=== PATIENT | female | born 1970 | race Hispanic/Latino ===

== ENCOUNTER 2019-07-26 19:55 | Emergency (ER) | payer BC ==
[~2019-07-26] VITALS: Ht 157.5 cm; Wt 79.8 kg
--- OUTSIDE RECORDS SUMMARY | 2019-07-26 19:58 | XMS REPORT ---
Author Author [facility] Address Unknown Phone Unavailable Care Team Providers Care Case Management Director Name Role Phone Unavailable Unavailable Payers Payer Name Policy Type Policy Number Effective Date Expiration Date Problems This patient has no known problems. Allergies, Adverse Reactions, Alerts Allergy Name Allergy Type Status Severity Reaction(s) Onset Date Inactive Date Treating Clinician Comments No Known Allergies DA Active U 2013-05-27 00:00:00 Medications This patient has no known medications.
[2019-07-26] MEDS ORDERED: KETOROLAC TROMETHAMINE 30 MG/ML VIAL IM STA (20:59)
--- NOTE | 2019-07-26 22:10 | Diagnostic Imaging Report ---
EXAM: Lumbar spine radiographs-3 views INDICATION: Back injury. COMPARISON: None FINDINGS: BONES: Minimal anterolisthesis of L4 on L5. No acute displaced fractures. Vertebral body heights are preserved. DISCS: Mild degenerative disc changes at L5-S1. JOINTS: Mild facet degenerative changes. SOFT TISSUES: Moderate amount of stool in the proximal colon. IMPRESSION: No acute lumbar spine radiographic findings. Signed by: Dr. Magan Hoff MD on 07/26/2019 10:07 PM
[2019-07-26 23:22] VITALS: BP 128/70
== END 2019-07-26 23:14 | disposition home or self-care (01) ==
LOC: FSED 19:55
DX: S33.5XXA Sprain of ligaments of lumbar spine, initial encounter (principal); N30.90 Cystitis, unspecified without hematuria; X50.9XXA Other and unspecified overexertion or strenuous movements or postures, initial encounter; Y93.B9 Activity, other involving muscle strengthening exercises; Y92.39 Other specified sports and athletic area as the place of occurrence of the external cause
CPT/HCPCS: 72100; 81003; 87086; 87186; 99283; J1885

== ENCOUNTER 2022-10-10 17:57 | Observation (INO) | payer BC, OTHER ==
[~2022-10-10] VITALS: Ht 157.5 cm; Wt 78.1 kg
[2022-10-10] MEDS ORDERED: SODIUM CHLORIDE 0.9% 100 ML ONE (20:56)
[2022-10-10] MEDS ORDERED: IOPAMIDOL 370 MG/ML 100 ML INFUS..BTL INJ ONE (20:58)
[2022-10-10] MEDS ORDERED: ONDANSETRON HCL INJ 2MG/ML 2ML 2 MG/ML VIAL IV PRN (22:30)
[2022-10-10] MEDS ORDERED: SODIUM CHLORIDE FLUSH 10 ML SYR INJ PRN (22:30)
[2022-10-10 23:58] VITALS: BP_SYST 123; BP_SYST 131; BP_DIAS 72; BP_DIAS 75; PULSE 56; RESP 17; TEMP 97.8; O2SAT 96
[2022-10-11 00:22] VITALS: BP 123/75; PULSE 56; RESP 17; TEMP 97.8; O2SAT 97
[2022-10-11 04:53] VITALS: BP 130/76; PULSE 60; RESP 18; TEMP 97.6; O2SAT 96
[2022-10-11 07:42] LABS: BASOPHILS % 0.9 % (0.0-1.0); EOSINOPHILS # (AUTO) 0.1 (0.0-0.4); EOSINOPHILS % 1.9 % (0.0-6.0); HEMATOCRIT 41.5 % (34.2-44.1); HEMOGLOBIN 13.5 g/dL (12.0-16.0); LYMPHOCYTES # (AUTO) 1.6 (1.0-3.2); LYMPHOCYTES % 38.2 % (18.0-39.1); MEAN CORPUSCULAR HEMOGLOBIN 30.1 pg (28-32); MEAN CORPUSCULAR HGB CONC 32.5 g/dL (31-35); MEAN CORPUSCULAR VOLUME 92.4 fL (81-99); MONOCYTES # (AUTO) 0.3 (0.2-0.8); MONOCYTES % 7.5 % (4.4-11.3); NEUTROPHILS # (AUTO) 2.2 (2.1-6.9); NEUTROPHILS % 51.5 % (38.7-80.0); PLATELET COUNT 231 x10e3/uL (140-360); RED BLOOD COUNT 4.49 x10e6/uL (3.6-5.1); RED CELL DISTRIBUTION WIDTH 13.5 % (11.7-14.4)
[2022-10-11 08:00] VITALS: BP 126/82; PULSE 59; RESP 22; TEMP 98; O2SAT 100
[2022-10-11 08:07] LABS: ALBUMIN 3.7 g/dL (3.5-5.0); ANION GAP 11.6 mmol/L (8-16); CALCIUM 9.1 mg/dL (8.4-10.2); CREATININE, SERUM 0.72 mg/dL (0.57-1.11); POTASSIUM 3.6 mmol/L (3.5-5.1)
[2022-10-11 08:08] LABS: ALBUMIN/GLOBULIN RATIO 1.1 (0.8-2.0); CHOL/HDL RATIO 7.3 (3.0-3.6)
[2022-10-11 08:11] VITALS: BP 126/82; PULSE 59; RESP 22; TEMP 98; O2SAT 100
[2022-10-11] MEDS ORDERED: ASPIRIN CHEW81 MG PO (11:28)
[2022-10-11] MEDS ORDERED: ATORVASTATIN CA40 MG PO (11:28)
[2022-10-11] MEDS ORDERED: ASPIRIN 81 MG CHEW TAB PO SCH (12:00)
[2022-10-11 12:02] VITALS: BP 130/78; PULSE 67; RESP 22; TEMP 98.1; O2SAT 97
[2022-10-11] MEDS ORDERED: ONDANSETRON HCL 4 MG ORAL DISINTEGRATING TAB PO PRN (13:30)
[2022-10-11 17:51] VITALS: BP 126/80; PULSE 60; RESP 20; TEMP 97.8; O2SAT 100
[2022-10-11] MEDS ORDERED: ATORVASTATIN 40 MG TAB PO SCH (21:00)
== END 2022-10-11 18:01 | disposition home or self-care (01) ==
LOC: FSED 18:01 → ERHOLD 22:26 → MED/SURG2 23:23
PROVIDERS: ADMIT Internal Medicine; ATTEND Internal Medicine
DX: R20.0 Anesthesia of skin (principal); R20.2 Paresthesia of skin; R26.81 Unsteadiness on feet; E78.5 Hyperlipidemia, unspecified; Z82.3 Family history of stroke; Z20.822 Contact with and (suspected) exposure to COVID-19; I07.1 Rheumatic tricuspid insufficiency; Z86.69 Personal history of other diseases of the nervous system and sense organs
CPT/HCPCS: 0223U; 36415 ×2; 70450; 70496; 70498; 70551; 80053 ×2; 80061; 81003; 82553; 82948; 84484; 85025 ×2; 93306; 99284; G0378 ×2; J7050; Q9967